=== PATIENT | male | born 1975 | race Caucasian/White ===

== ENCOUNTER 2019-08-12 05:58 | Observation (INO) | payer BC ==
[2019-08-10 10:32] VITALS: BMI 41.3
[~2019-08-12 05:58] MED LIST: DEXAMETHASONE SOD PHOSPHATE 4 MG/ML 1 ML VIAL IV ONE; FAMOTIDINE 20 MG/2 ML VIAL IV ONE; ONDANSETRON 4 MG/2 ML VIAL IVP ONE
[2019-08-12] MEDS ORDERED: SCOPOLAMINE 1.5MG/72HR PATCH TRANSDERM ONE (06:03)
[2019-08-12] MEDS ORDERED: LIDOCAINE 1% 20 ML VIAL (10MG/ML) FOR IV START INTRADERMA PRN (06:03)
[2019-08-12] MEDS ORDERED: ONDANSETRON 4 MG/2 ML VIAL IVP ONE (06:03)
[2019-08-12] MEDS ORDERED: DEXAMETHASONE SOD PHOSPHATE 10 MG/ML 1 ML VIAL IV ONE (06:03)
[2019-08-12] MEDS: OXYMETAZOLINE 0.05% NASL SPRAY 1 SPRAY BOTTLE NASAL ONE ×5 (06:10→06:21)
[2019-08-12] MEDS: LACTATED RINGERS 1,000 ML IV SCH ×2 (06:30→09:40)
[2019-08-12] MEDS ORDERED: METOCLOPRAMIDE 5 MG/ML 2 ML VIAL IVP ONE (06:58)
[2019-08-12] MEDS ORDERED: SUCCINYLCHOLINE CHLORIDE VIAL 200 MG/10 ML VIAL IV ONE (06:59)
[2019-08-12] MEDS ORDERED: MIDAZOLAM 2 MG/2 ML VIAL ONE (06:59)
[2019-08-12] MEDS ORDERED: LIDOCAINE 1% INJ 10MG/ML (20 ML MDV) ONE (06:59)
[2019-08-12] MEDS ORDERED: fentaNYL (PF) 50 MCG/ML 2 ML AMP ONE (06:59)
[2019-08-12] MEDS ORDERED: PROPOFOL 10 MG/ML 20 ML VIAL IV ONE (06:59)
[2019-08-12] MEDS ORDERED: LIDOCAINE VISCOUS 2% 15 ML CUP MUCOUS MEM PRN (07:02)
[2019-08-12] MEDS ORDERED: BUPIVACAINE (PF) 0.25% 30 ML VIAL SQ ONE (07:29)
[2019-08-12] MEDS ORDERED: LIDOCAINE 1%-EPI 1:100,000 20 ML VIAL SQ ONE (07:29)
[2019-08-12] MEDS ORDERED: BACITRACIN 500 UNIT/GM OINT 28.4 GM TUBE TOPICAL ONE (07:29)
--- NOTE | 2019-08-12 08:53 | P.OP ---
Date of Procedure: 08/12/19 Preoperative Diagnosis: Deviated nasal septum Obstructive sleep apnea syndrome Hypertension Primary snoring Macroglossia Obesity Sleep arousal disorder Tonsillar hypertrophy Uvular hypertrophy Hypertrophy of both inferior nasal turbinates Postoperative Diagnosis: Same Procedure(s) Performed: Septoplasty Bilateral submucosal resection of the inferior nasal turbinates with outfracture compression Tonsillectomy Uvulopalatopharyngoplasty Midline-V resection of the base of tongue Anesthesia: FAREEDA Surgeon: Iker Pepper Estimated Blood Loss (ml): 20 Pathology: other (Septum, tonsils, uvula) Condition: stable Disposition: PACU Indications for Procedure: This patient presented to the office with intolerance to his CPAP machine. The patient has since study demonstrating obstructive sleep apnea syndrome and unfortunately continued to have sleep apneic issues. He had a respiratory disturbance index of 34 and again was intolerant to CPAP on several occasions. Examination showed multiple areas of airway obstruction including a deviated nasal septum, obstructive inferior nasal turbinates, large obstructive tonsils with a redundant soft palate and uvula and a large posterior base of tongue hypertrophy with obstruction. Patient has multiple levels of airway obstruction and surgery was discussed including all risks, benefits, and alternative therapies. Patient wished to proceed forward with surgery. We elected to schedule him for septoplasty, turbinate surgery, uvulopalatopharyngoplasty with tonsillectomy and base of tongue surgery. All questions were answered. Consent was obtained. Operative Findings: This patient had a severe deviated nasal septum from the right to the left anterior to posterior with large obstructive inferior turbinates. Tonsils were extremely enlarged and were grade 4 over 4 touching in the midline with a elongated uvula. Patient also had macroglossia of the base of the tongue posteriorly. There was very limited in multiple locations. Description of Procedure: This patient was taken to the operative room and placed in the supine position. A general inhalation anesthetic was administered to the patient and subsequently intubated with a cuffed endotracheal tube by the department of anesthesia with a functioning IV line in place. The patient was monitored through the entire case by the department of anesthesia. Prep medication was administered Attention was paid to the nose where the septum and inferior turbinates were injected with lidocaine 1% with epinephrine 1 100,000. Approximately 10 minutes were allowed wait for full vasoconstrictive effects to take place. At this time, a caudal incision was made over the caudal portion of the left septum. This was made down to the mucoperichondrium were a mucoperichondrial flap was developed to the extent of visualization on the left. A crossover incision was made with further mucoperichondrial flap development to the extent of visualization on the contralateral side. With use of several crosshatching incisions and removal of redundant strips of septal cartilage the septum was straightened and placed back in position. The septum was perfectly straight and the incision was closed with a 4 rapid Vicryl. A quilting stitch was used to reapproximate the septal flaps. The septum was sutured fixated to the vomer area and groove. In the incision was closed with 40 rapid Vicryl. After the septum was straightened I entered the inferior turbinates bilaterally with a microdebrider utilizing a 2 mm blade. I removed bone and submucosal elements from the anterior two thirds of the inferior turbinates bilaterally with the microdebrider and then with a [employer] nasal elevator, the inferior turbinates were outfractured and compressed. Bilateral nasal splints were placed and sutured fixated along with the placement of nasal pore against the anterior portion of the inferior turbinate and splints laterally. Mouth was opened and tongue was depressed. The tonsils were grasped with an Allis forceps and brought medially bilaterally. A subcapsular dissection was performed utilizing an Evac-70 handpiece with an [employer] setting of 7. The tonsils were removed without incident bilaterally and the tonsillar fossae were inspected and bleeding was nonexistent and stopped spontaneously with Coblation. A Marcaine and lidocaine mixture was injected into the peritonsillar area for anesthesia postoperatively. The patient tolerated this procedure well. Surgical site was reinspected and no bleeding was noted. Attention was then paid to the uvula and soft palate. I resected a portion of the uvula anteriorly and a portion of the superior mucosa above the uvula. I sutured fixated to the remnant uvula into the soft palate to elevate the central portion of the soft palate for tightening and sutured the anterior and posterior pillars together. A uvulopalatopharyngoplasty was completed with use of 4 rapid Vicryl. The ureter was reinspected there was no evidence of any bleeding. Soft palate was tightened and again the uvula was repositioned and shortened. Attention was then paid to the base of tongue with use of a sweetheart retractor. The base the tongue from the foramen cecum to the vallecula was moved in a V-shaped fashion. A midline base of tongue resection was performed to open up the base of the tongue posteriorly were better breathing. In the patient tolerated this well and Marcaine was injected into that site after surgical resection. To summarize, the septum was straightened and the inferior turbinates underwent a anterior submucosal resection and outfracturing compression. Tonsils were removed and the soft palate underwent a uvulopalatopharyngoplasty, the base of tongue underwent a the midline resection from the foramen cecum to the vallecula and hemostasis was spontaneous. All surgical sites were reinspected. No bleeding was encountered. The patient was taken to postanesthesia recovery in excellent condition. Patient will be discharged with pain medication including Percocet, Pepcid, Decadron, amoxicillin, viscous lidocaine, and mobic.
[2019-08-12] MEDS: HYDROmorphone 0.5 MG/0.5 ML SYRINGE IVP PRN ×6 (08:59→16:30)
[2019-08-12] MEDS ORDERED: hydrALAZINE HCL 20 MG/ML 1 ML VIAL IV ONE (10:36)
[2019-08-12] MEDS ORDERED: LABETALOL 5 MG/ML VIAL MDV IV ONE (10:51)
[2019-08-12] MEDS ORDERED: MEPERIDINE 50 MG/ML SYRINGE IVP ONE ×2 (11:24→14:06)
[2019-08-12] MEDS ORDERED: amLODIPine 10 MG TAB PO STA (12:17)
[2019-08-12] MEDS: PANTOPRAZOLE 40 MG TABLET PO STA ×2 (14:00→16:35)
[2019-08-12] MEDS ORDERED: amLODIPine 5 MG TAB PO ONE (14:38)
[2019-08-12] MEDS ORDERED: PANTOPRAZOLE 40 MG TABLET PO STA (16:18)
[2019-08-12] MEDS: MELOXICAM 7.5 MG TAB PO SCH (16:54)
[2019-08-12] MEDS: oxyCODONE-APAP 5-325MG 1 EACH TAB PO PRN ×2 (18:10→23:29)
[2019-08-13] MEDS: oxyCODONE-APAP 5-325MG 1 EACH TAB PO PRN (06:12)
[2019-08-13] MEDS ORDERED: LEVOTHYROXINE 25 MCG TAB PO SCH (06:30)
[2019-08-13 07:28] VITALS: BP 120/80; PULSE 102; RESP 18; TEMP 98
[2019-08-13] MEDS: MELOXICAM 7.5 MG TAB PO SCH (08:17)
--- NOTE | 2019-08-13 13:37 | PN ---
PROGRESS NOTE Alexander Armendariz is doing well this morning. He will be discharged. His pain is under good control. He had a good evening with no difficulties. PHYSICAL EXAM: Vital signs are stable. Patient is afebrile. Patient's head is normocephalic. Nose shows splints in place. Mouth and throat are healing well. UP3 surgery in good position. Sutures are good. Neck is unremarkable. IMPRESSION: Status post uvulopalatopharyngoplasty and sinonasal surgery. PLAN OF TREATMENT: The patient will be discharged today and he is to call me if any problems should arise. MMODL / IJN: [id number] /
--- NOTE | 2019-08-13 13:40 | DS ---
DISCHARGE SUMMARY DATE OF SERVICE: 08/13/2019. PREOPERATIVE DIAGNOSES: Obstructive sleep apnea syndrome, deviated nasal septum, base of tongue hypertrophy, turbinate hypertrophy. OPERATIVE PROCEDURE: Sleep apnea surgery, septal and turbinate surgery and base of tongue resection. DATE OF DISCHARGE: 08/13/2019 DESCRIPTION: This patient underwent sleep apnea surgery yesterday, did quite well with no difficulties. We kept him just through the evening to monitor his pain. We will be discharging him today. He is to contact me during the postop process. To call me if any problems should arise. MMODL / IJN: [id number] /
== END 2019-08-13 10:55 | disposition home or self-care (01) ==
LOC: OR 05:58 → 4SSUR 09:38 → OR 20:15 → 4SSUR 20:15
PROVIDERS: ADMIT Otolaryngology; ATTEND Otolaryngology
DX: J34.2 Deviated nasal septum (principal); J35.01 Chronic tonsillitis; K13.79 Other lesions of oral mucosa; G47.8 Other sleep disorders; G47.33 Obstructive sleep apnea (adult) (pediatric); Q38.2 Macroglossia; J34.3 Hypertrophy of nasal turbinates; K14.8 Other diseases of tongue; I10 Essential (primary) hypertension; K21.9 Gastro-esophageal reflux disease without esophagitis; E66.9 Obesity, unspecified; Z68.41 Body mass index [BMI] 40.0-44.9, adult; Z79.899 Other long term (current) drug therapy; Z79.890 Hormone replacement therapy; Z91.048 Other nonmedicinal substance allergy status; H91.90 Unspecified hearing loss, unspecified ear; Z82.49 Family history of ischemic heart disease and other diseases of the circulatory system
CPT/HCPCS: 94760; 94762; 93005; 88304; 88300; 88302; 30520; 30140; 30930; 42145; 41120; G0378 ×2; J2250; J0330; J0360; J1100; J2175; J2405; J0690 ×2; J2001; J3010; J2704; J1170

== ENCOUNTER 2020-03-17 13:23 | Emergency (ER) | payer BC ==
[2020-03-17 13:36] VITALS: TEMP 98.2
[2020-03-17] MEDS ORDERED: MECLIZINE 12.5 MG TAB PO STA (13:50)
[2020-03-17] MEDS ORDERED: SODIUM CHLORIDE 0.9% 1,000 ML IV STA (13:50)
--- NOTE | 2020-03-17 14:13 | ED ---
General Adult HPI - General Chief complaint: Dizziness Stated complaint: Near Syncope Time Seen by Provider: 03/17/20 13:39 Source: patient, RN notes reviewed, old records reviewed Mode of arrival: ambulatory Limitations: no limitations - History of Present Illness Initial comments: 44-year-old male patient who had a history of vertigo presents ED for chief complaint lightheadedness. Patient reports that today he has had a few episodes of feeling lightheaded. Reports that when he sits down he has had some lightheaded sensation, however when he gets up and moves about the sensation goes away. Denies any headache chest pain or shortness of breath. Denies any other acute complaints. Systemic: Pt denies fatigue, fever/chills, rash. Pt denies weakness, night sweats, weight loss. Neuro: Pt denies headache, visual disturbances, syncope. HEENT: Pt denies ocular discharge or irritation, otalgia, rhinorrhea, pharyngitis or notable lymphadenopathy. Cardiopulmonary: Pt denies chest pain, SOB, heart palpitations, dyspnea on exertion. Abdominal/GI: Pt denies abdominal pain, n/v/d. : Pt denies dysuria, burning w/ urination, frequency/urgency. Denies new onset urinary or bowel incontinence. MSK: Pt denies myalgia, loss of strength or function in extremities. Neuro: Pt denies new onset weakness, paresthesias. - Related Data Home Medications Medication Instructions Recorded Confirmed Esomeprazole Magnesium [NexIUM] 40 mg PO HS 08/10/19 03/17/20 Zolpidem Tartrate [Ambien] 10 mg PO HS PRN 08/10/19 03/17/20 Aspirin EC [Ecotrin Low Dose] 81 mg PO DAILY 03/17/20 03/17/20 Atorvastatin [Lipitor] 20 mg PO DAILY 03/17/20 03/17/20 Lisinopril [Prinivil] 10 mg PO DAILY 03/17/20 03/17/20 Allergies Allergy/AdvReac Type Severity Reaction Status Date / Time No Known Allergies Allergy Verified 03/17/20 14:16 Review of Systems ROS Statement: Those systems with pertinent positive or pertinent negative responses have been documented in the HPI. ROS Other: All systems not noted in ROS Statement are negative. Past Medical History Past Medical History: GERD/Reflux, Hypertension, Sleep Apnea/CPAP/BIPAP Additional Past Medical History / Comment(s): HIATAL HERNIA , History of Any Multi-Drug Resistant Organisms: None Reported Past Surgical History: Tonsillectomy Additional Past Surgical History / Comment(s): VASECTOMY, WISDOM TEETH REMOVED, RIGHT HAND WITH SCREW, IRRITATING METAL REMOVED FROM RIGHT HAND , uvula removed Past Anesthesia/Blood Transfusion Reactions: No Reported Reaction Past Psychological History: No Psychological Hx Reported Smoking Status: Never smoker Past Alcohol Use History: Rare Past Drug Use History: None Reported - Past Family History Father Family Medical History: Pulmonary Embolus General Exam - General Exam Comments Initial Comments: Constitutional: NAD, AOX3, Pt has pleasant affect. HEENT: NC/AT, trachea midline, neck supple, no lymphadenopathy. External ears appear normal, without discharge. Mucous membranes moist. Eyes PERRLA, EOM intact. There is no scleral icterus. No pallor noted. Cardiopulmonary: RRR, no murmurs, rubs or gallops, no JVD noted. Lungs CTAB in anterior and posterior barclay. No peripheral edema. Abdominal exam: Abdomen soft and non-distended. Abdomen non-tender to palpation in all 4 quadrants. Bowel sounds active in LLQ. No hepatosplenomegaly. No ecchymosis Neuro: CN II-XII intact. No nuchal rigidity. No raccon eyes, no clay sign, no hemotympanum. No cervical spinal tenderness. NIH 0. MSK: No posterior calf tenderness bilaterally, homans sign negative bilaterally. Posterior tibialis and radial pulse +2 bilaterally. Sensation intact in upper and lower extremities. Full active ROM in upper and lower extremities, 5/5 stregnth. Limitations: no limitations Course Vital Signs 03/17/20 13:33 Temperature 98.2 F Pulse Rate 75 Respiratory 20 Rate Blood Pressure 141/88 Medical Decision Making - Medical Decision Making 44-year-old male patient with the chief complaint of lightheadedness. Patient was began earlier today. Patient vital signs are stable, afebrile. Physical exam did not display acute pathology. Laboratory investigations do reveal mild dehydration. Patient administered 1.5 L saline bolus. Patient also administered meclizine. CT brain did not display acute process. Patient feeling much improved. Denying any symptoms at this time. Ambulate around department Without difficulty. We discharge the patient follow-up and return precautions. Case discussed with Dr. Daniel. - Lab Data Result diagrams: 03/17/20 13:59 03/17/20 13:59 Lab Results 03/17/20 03/17/20 03/17/20 Range/Units 13:59 13:59 13:59 WBC 7.8 (3.8-10.6) k/uL RBC 5.52 (4.30-5.90) m/uL Hgb 16.3 (13.0-17.5) gm/dL Hct 49.4 (39.0-53.0) % MCV 89.5 (80.0-100.0) fL MCH 29.6 (25.0-35.0) pg MCHC 33.1 (31.0-37.0) g/dL RDW 12.8 (11.5-15.5) % Plt Count 211 (150-450) k/uL Neutrophils % 72 % Lymphocytes % 18 % Monocytes % 6 % Eosinophils % 2 % Basophils % 0 % Neutrophils # 5.6 (1.3-7.7) k/uL Lymphocytes # 1.4 (1.0-4.8) k/uL Monocytes # 0.5 (0-1.0) k/uL Eosinophils # 0.1 (0-0.7) k/uL Basophils # 0.0 (0-0.2) k/uL Sodium 137 (137-145) mmol/L Potassium 4.7 (3.5-5.1) mmol/L Chloride 107 (98-107) mmol/L Carbon Dioxide 21 L (22-30) mmol/L Anion Gap 9 mmol/L BUN 22 H (9-20) mg/dL Creatinine 1.42 H (0.66-1.25) mg/dL Est GFR (CKD-EPI)AfAm 70 (>60 ml/min/1.73 sqM) Est GFR (CKD-EPI)NonAf 61 (>60 ml/min/1.73 sqM) Glucose 111 H (74-99) mg/dL Calcium 9.9 (8.4-10.2) mg/dL Magnesium 1.8 (1.6-2.3) mg/dL Total Bilirubin 0.8 (0.2-1.3) mg/dL AST 33 (17-59) U/L ALT 34 (4-49) U/L Alkaline Phosphatase 61 (38-126) U/L Troponin I <0.012 (0.000-0.034) ng/mL Total Protein 7.3 (6.3-8.2) g/dL Albumin 4.6 (3.5-5.0) g/dL Urine Color Urine Appearance (Clear) Urine pH (5.0-8.0) Ur Specific [place] (1.001-1.035) Urine Protein (Negative) Urine Glucose (UA) (Negative) Urine Ketones (Negative) Urine Blood (Negative) Urine Nitrite (Negative) Urine Bilirubin (Negative) Urine Urobilinogen (<2.0) mg/dL Ur Leukocyte Esterase (Negative) 03/17/20 Range/Units 14:01 WBC (3.8-10.6) k/uL RBC (4.30-5.90) m/uL Hgb (13.0-17.5) gm/dL Hct (39.0-53.0) % MCV (80.0-100.0) fL MCH (25.0-35.0) pg MCHC (31.0-37.0) g/dL RDW (11.5-15.5) % Plt Count (150-450) k/uL Neutrophils % % Lymphocytes % % Monocytes % % Eosinophils % % Basophils % % Neutrophils # (1.3-7.7) k/uL Lymphocytes # (1.0-4.8) k/uL Monocytes # (0-1.0) k/uL Eosinophils # (0-0.7) k/uL Basophils # (0-0.2) k/uL Sodium (137-145) mmol/L Potassium (3.5-5.1) mmol/L Chloride (98-107) mmol/L Carbon Dioxide (22-30) mmol/L Anion Gap mmol/L BUN (9-20) mg/dL Creatinine (0.66-1.25) mg/dL Est GFR (CKD-EPI)AfAm (>60 ml/min/1.73 sqM) Est GFR (CKD-EPI)NonAf (>60 ml/min/1.73 sqM) Glucose (74-99) mg/dL Calcium (8.4-10.2) mg/dL Magnesium (1.6-2.3) mg/dL Total Bilirubin (0.2-1.3) mg/dL AST (17-59) U/L ALT (4-49) U/L Alkaline Phosphatase (38-126) U/L Troponin I (0.000-0.034) ng/mL Total Protein (6.3-8.2) g/dL Albumin (3.5-5.0) g/dL Urine Color Yellow Urine Appearance Clear (Clear) Urine pH 5.5 (5.0-8.0) Ur Specific [place] 1.022 (1.001-1.035) Urine Protein Negative (Negative) Urine Glucose (UA) Negative (Negative) Urine Ketones Negative (Negative) Urine Blood Negative (Negative) Urine Nitrite Negative (Negative) Urine Bilirubin Negative (Negative) Urine Urobilinogen <2.0 (<2.0) mg/dL Ur Leukocyte Esterase Negative (Negative) - EKG Data -: EKG Interpreted by Me (and Dr. Daniel ) EKG Comments: Ventricular rate 96, Pr interval 168, QRS 78, QT/QTC 356/449. Normal sinus rhythm, normal EKG, no concern for acute ischemia at this time. Disposition Clinical Impression: Lightheadedness Disposition: HOME SELF-CARE Condition: Stable Instructions (If sedation given, give patient instructions): Dizziness (ED) Additional Instructions: Follow up with primary care provider tomorrow. If symptoms return you may take the antivert every 8 hours. Drink lots of fluids. Have kidney function tests rechecked. Return to ED with any worsening symptoms. Is patient prescribed a controlled substance at d/c from ED?: No Referrals: Barbara Tai MD [Primary Care Provider] - 1-2 days
[2020-03-17 14:24] LABS: Albumin 4.6 g/dL (3.5-5.0); Basophils % (A) 0 %; Calcium 9.9 mg/dL (8.4-10.2); Eosinophils # (A) 0.1 k/uL (0-0.7); Eosinophils % (A) 2 %; HCT 49.4 % (39.0-53.0); HGB 16.3 gm/dL (13.0-17.5); Lymphocytes # (A) 1.4 k/uL (1.0-4.8); Lymphocytes % (A) 18 %; MCH 29.6 pg (25.0-35.0); MCHC 33.1 g/dL (31.0-37.0); MCV 89.5 fL (80.0-100.0); Magnesium 1.8 mg/dL (1.6-2.3); Mean Platelet Volume 7.5; Monocytes # (A) 0.5 k/uL (0-1.0); Monocytes % (A) 6 %; Neutrophils # (A) 5.6 k/uL (1.3-7.7); Neutrophils % (A) 72 %; Platelet Count 211 k/uL (150-450); Potassium 4.7 mmol/L (3.5-5.1); RBC 5.52 m/uL (4.30-5.90); RDW 12.8 % (11.5-15.5); Total Bilirubin 0.8 mg/dL (0.2-1.3); Total Protein 7.3 g/dL (6.3-8.2); WBC 7.8 k/uL (3.8-10.6)
[2020-03-17] MEDS ORDERED: SODIUM CHLORIDE 0.9% 500 ML 500 ML IV ONE (15:01)
[2020-03-17 15:27] LABS: Appearance,Urine Clear (Clear); Bilirubin,Urine Negative (Negative); Blood,Urine Negative (Negative); Color,Urine Yellow; Glucose,Urine (UA) Negative (Negative); Ketones,Urine Negative (Negative); Leukocyte Esterase,Urine Negative (Negative); Nitrite,Urine Negative (Negative); PH, Urine 5.5 (5.0-8.0); Protein,Urine Negative (Negative); Specific Gravity,Urine 1.022 (1.001-1.035); Urobilinogen,Urine <2.0 mg/dL (<2.0)
--- NOTE | 2020-03-17 15:30 | CT ---
EXAMINATION TYPE: CT brain wo con DATE OF EXAM: 03/17/2020 HISTORY: Near syncopal episode today. CT DLP: 1113.4 mGycm. Automated Exposure Control for Dose Reduction was Utilized. TECHNIQUE: CT scan of the head is performed without contrast. COMPARISON: None FINDINGS: There is no acute intracranial hemorrhage, midline shift, or mass effect identified. Brain parenchyma appears normal. The ventricles, sulci, and cisterns are normal in size and configuration. No extra-axial fluid collection. Bones and extracranial soft tissues are intact. The globes are gross ly symmetric. Visualized sinuses and mastoid air cells are clear. IMPRESSION: No acute intracranial hemorrhage, midline shift, or mass effect.
[2020-03-17 16:24] VITALS: RESP 18
[2020-03-17 16:28] VITALS: BP 148/95; PULSE 104
== END 2020-03-17 16:28 | disposition home or self-care (01) ==
LOC: EC 13:23
DX: R42 Dizziness and giddiness (principal); K21.9 Gastro-esophageal reflux disease without esophagitis; I10 Essential (primary) hypertension; G47.33 Obstructive sleep apnea (adult) (pediatric); Z79.899 Other long term (current) drug therapy; Z99.89 Dependence on other enabling machines and devices
CPT/HCPCS: 36415; 70450; 80053; 81003; 83735; 84484; 85025; 93005; 96360; 96361; 99285

== ENCOUNTER → 2020-06-05 | Outpatient (CLI) | payer BC ==
--- NOTE | 2020-06-05 14:51 | CT ---
EXAMINATION TYPE: CT angio chest DATE OF EXAM: 06/05/2020 COMPARISON: None HISTORY: 44-year-old male I71.2, Thoracic aortic aneurysm without rupture. Irregular heart beat. TECHNIQUE: Contiguous axial scanning of the chest performed with IV Contrast, patient injected with 1 00 mL of Isovue M300. Coronal/sagittal MIP reconstructions performed. 3-D reconstructions generated o n a dedicated independent workstation. CT DLP: 449 mGycm Automated exposure control for dose reduction was used. FINDINGS: Heart upper limits of normal in size without pericardial effusion. Aortic root is ectatic at 3.6 cm. Ascending aorta ectatic at 3.7 cm. Conventional arch vessel branching anatomy. No evidence for aortic dissection. Descending thoracic aorta normal caliber. No thoracic lymphadenopathy by CT size criteria. Mild diffuse bronchial wall thickening. No consolidation or pleural effusion. A 7 mm right mid lung pulmonary nodule is located along the major fissure probably represents an intr afissural lymph node. Small hiatal hernia. Underlying hepatic steatosis within the visualized abdomen. Bones: No osseous destructive process. IMPRESSION: 1. MILDLY ECTATIC AORTIC ROOT AND ASCENDING AORTA (3.6 CM AND 3.7 CM, RESPECTIVELY). 2. MILD DIFFUSE BRONCHIAL WALL THICKENING COULD REFLECT BRONCHITIS OR CHRONIC ASTHMA. 3. A 7 MM RIGHT MID LUNG PULMONARY NODULE, POSSIBLE SUBPLEURAL LYMPH NODE ALONG THE MAJOR FISSURE. RE COMMEND 6-12 MONTH FOLLOWED BY 18-24 MONTH FOLLOW-UP EXAMS TO ENSURE STABILITY. 4. HEPATIC STEATOSIS AND SMALL HIATAL HERNIA.
== END | disposition home or self-care (01) ==
LOC: RADCTMAIN 13:58
PROVIDERS: ATTEND Internal Medicine Interventional Cardiology
DX: I77.810 Thoracic aortic ectasia (principal); K44.9 Diaphragmatic hernia without obstruction or gangrene; R91.1 Solitary pulmonary nodule; J98.09 Other diseases of bronchus, not elsewhere classified
CPT/HCPCS: 71275; Q9967